=== PATIENT | female | born 1965 | race Caucasian/White ===

== ENCOUNTER 2017-06-14 14:22 | Inpatient (IN) ==
[2017-06-14] MEDS ORDERED: MAGNESIUM SULF RIDER 4 GM in PREMIX 1 EACH IV PRN (14:24)
[2017-06-14] MEDS ORDERED: MAGNESIUM SULF RIDER 2 GM in PREMIX 1 EACH IV PRN (14:24)
[2017-06-14] MEDS ORDERED: diphenhydrAMINE CAP 25 MG CAPSULE PO PRN (14:24)
[2017-06-14] MEDS ORDERED: ZALEPLON 5 MG CAPSULE PO PRN (14:24)
[2017-06-14] MEDS ORDERED: DOCUSATE SODIUM 100 MG CAPSULE PO PRN (14:24)
[2017-06-14] MEDS ORDERED: ONDANSETRON 4 MG/2 ML VIAL IV PRN (14:24)
[2017-06-14] MEDS ORDERED: guaiFENesin/DM ER 600-30 MG TABLET PO PRN (14:24)
[2017-06-14] MEDS ORDERED: LACTULOSE 20 GM/30 ML UDCUP PO PRN (14:24)
[2017-06-14 16:50] LABS: Troponin I Only 0.707 NG/ML (0.00-0.045)
[2017-06-14 17:23] LABS: Basophils # 0.1 10*3/uL (0.0-0.2); Basophils % 0.3 % (0.0-0.8); Eosinophils % 0.1 % (0.00-10.9); Hematocrit 39.3 VOL% (35.7-47.0); Hemoglobin 12.6 GM/DL (12.0-16.0); Immature Granulocytes % 0.4 %; Lymphocytes # 2.5 10*3/uL (1.4-4.0); Mean Corpuscular HGB Conc 32.1 GM/DL (32-36); Mean Corpuscular Hemoglobin 26 PG (27-34); Monocytes # 0.9 10*3/uL (0.11-0.8); Monocytes % 3.7 % (1.7-12.7); Neutrophils % 85.5 % (38.7-73.9); Platelet Count 415 T/CUMM (130-400); Red Blood Count 4.91 MC/CUMM (3.8-5.5); Red Cell Distribution Width 15.1 % (9.3-17.3); White Blood Count 24.5 T/CUMM (4-12)
[2017-06-14 17:42] LABS: INR 0.9; PT Patient Result 9.8 SECS; Partial Thromboplastin Time 27.5 SECS (0-40)
[2017-06-14 17:58] LABS: Albumin 3.4 G/DL (3.4-5.0); Bilirubin,Total 0.6 MG/DL (0.2-1.0); Calcium 8.9 MG/DL (8.5-10.1); Osmolality,Calculated 278.7 MOS/KG (273-304); Potassium 3.7 MMOL/L (3.5-5.1); Total Protein 7.4 G/DL (6.4-8.3)
[2017-06-14] MEDS ORDERED: hydrOXYzine HCL 25 MG TABLET PO PRN (18:03)
[2017-06-14] MEDS ORDERED: GLUCAGON 1 MG VIAL IM PRN (18:06)
[2017-06-14] MEDS ORDERED: DEXTROSE 50% 25 GM/50 ML VIAL IV PRN (18:06)
[2017-06-14 18:08] LABS: Band Neutrophils 1 % (0-10); Lymphocytes 12 % (20-55); Myelocytes 1 %; Segmented Neutrophils 79 % (50-85); Total Cells Counted 100
[2017-06-14 18:09] LABS: Platelet Estimate Increased
[2017-06-14 18:10] LABS: Troponin I Only 0.662 NG/ML (0.00-0.045)
[2017-06-14] MEDS ORDERED: ALBUTEROL 2.5 MG/3 ML NEB RESP TX PRN (18:10)
[2017-06-14] MEDS ORDERED: METOPROLOL TARTRATE 5 MG/5 ML VIAL IV PRN (18:15)
[2017-06-14 18:17] LABS: Apearance,Urine CLEAR (Clear); Bilirubin,Urine Negative (Negative); Blood, Urine Negative (Negative); Glucose,Urine (UA) Negative (Negative); Ketones,Urine Negative (Negative); Nitrite,Urine Negative (Negative); Protein,Urine Negative; RBC,Urine 1 /HPF (0-4); Squamous Epithelial Cell,Urine Occasional /HPF (0-10); Urine Color Straw (Yellow); Urine Specific Gravity 1.033 (1.001-1.035); Urine Urobilinogen < 2.0 EU/DL (0.2-1.0); WBC,Urine <1 /HPF (0-6)
[2017-06-14 18:24] LABS: Risk Ratio 5.09; VLDL CHOLESTEROL 44.8 MG/DL
[2017-06-14 18:41] LABS: Folate > 24.0 NG/ML (5.4-24.0); Vitamin B12 459 PG/ML (211-911)
[2017-06-14] MEDS: INSULIN LISPRO 100 UNIT/ML SUBCUT SCH (18:50)
[2017-06-14] MEDS: ALBUTEROL/IPRATROPIUM 3 ML NEB RESP TX SCH ×2 (19:25→23:58)
[2017-06-14] MEDS: cefTRIAXone 1,000 MG in SYRINGE 1 EACH IV SCH (20:27)
[2017-06-14] MEDS: FUROSEMIDE 40 MG/4 ML VIAL IV SCH (20:27)
[2017-06-14 20:58] LABS: Troponin I Only 0.666 NG/ML (0.00-0.045)
[2017-06-14] MEDS: SODIUM CHLORIDE 0.9% 1,000 ML IV SCH (21:50)
[2017-06-14] MEDS: CETIRIZINE 10 MG TABLET PO SCH (22:37)
[2017-06-14] MEDS: ROSUVASTATIN 20 MG TABLET PO SCH (22:37)
[2017-06-14] MEDS: METOPROLOL TARTRATE 25 MG TABLET PO SCH (22:37)
[2017-06-15 02:07] LABS: Basophils # 0.1 10*3/uL (0.0-0.2); Basophils % 0.3 % (0.0-0.8); Eosinophils % 0.1 % (0.00-10.9); Hematocrit 37.7 VOL% (35.7-47.0); Immature Granulocytes % 0.4 %; Immature Granulocytes Absolute 0.08 #; Lymphocytes # 2.9 10*3/uL (1.4-4.0); Lymphocytes % 15.9 % (21.3-54.2); Mean Corpuscular HGB Conc 31.8 GM/DL (32-36); Mean Corpuscular Hemoglobin 26 PG (27-34); Monocytes % 5.5 % (1.7-12.7); Neutrophils # 13.9 10*3/uL (1.4-7.4); Neutrophils % 77.8 % (38.7-73.9); Platelet Count 369 T/CUMM (130-400); Red Blood Count 4.71 MC/CUMM (3.8-5.5); Red Cell Distribution Width 14.9 % (9.3-17.3); White Blood Count 17.9 T/CUMM (4-12)
[2017-06-15 02:22] LABS: Calcium 8.8 MG/DL (8.5-10.1); Osmolality,Calculated 279.5 MOS/KG (273-304); Potassium 3.5 MMOL/L (3.5-5.1)
[2017-06-15] MEDS: POTASSIUM CHLORIDE RIDER 10 MEQ in PREMIX 1 EACH IV PRN ×2 (03:53→05:47)
[2017-06-15] MEDS: LEVOTHYROXINE 88 MCG TABLET PO SCH (06:14)
[2017-06-15] MEDS: ALBUTEROL/IPRATROPIUM 3 ML NEB RESP TX SCH ×3 (07:18→20:48)
[2017-06-15] MEDS ORDERED: ENOXAPARIN 40 MG/0.4 ML SYRINGE SUBCUT SCH (09:00)
[2017-06-15] MEDS: INSULIN LISPRO 100 UNIT/ML SUBCUT SCH ×2 (10:01→20:00)
[2017-06-15] MEDS: METOPROLOL TARTRATE 25 MG TABLET PO SCH ×2 (10:02→21:21)
[2017-06-15] MEDS: CETIRIZINE 10 MG TABLET PO SCH ×2 (10:02→21:22)
[2017-06-15] MEDS: PANTOPRAZOLE 40 MG TABLET PO SCH (10:02)
[2017-06-15] MEDS: ASPIRIN EC 81 MG TABLET PO SCH ×2 (10:02→16:26)
[2017-06-15] MEDS: LORazepam 2 MG/1 ML VIAL IV PRN (10:25)
[2017-06-15] MEDS ORDERED: FUROSEMIDE 40 MG/4 ML VIAL ONE (16:11)
[2017-06-15] MEDS: DILTIAZEM 30 MG TABLET PO SCH ×2 (16:25→21:21)
[2017-06-15] MEDS: FUROSEMIDE 40 MG/4 ML VIAL IV SCH ×2 (16:25→22:28)
[2017-06-15] MEDS: cefTRIAXone 1,000 MG in SYRINGE 1 EACH IV SCH ×2 (16:27→21:54)
[2017-06-15] MEDS ORDERED: ENOXAPARIN 120 MG/0.8 ML SYRINGE SUBCUT ONE (16:32)
[2017-06-15] MEDS: ENOXAPARIN 120 MG/0.8 ML SYRINGE SUBCUT SCH ×2 (16:33→21:22)
[2017-06-15] MEDS: ACETAMINOPHEN 325 MG TABLET PO PRN (21:20)
[2017-06-15] MEDS: ROSUVASTATIN 20 MG TABLET PO SCH (21:20)
[2017-06-16] MEDS: SODIUM CHLORIDE 0.9% 1,000 ML IV SCH ×2 (00:55→18:32)
[2017-06-16] MEDS: ALBUTEROL/IPRATROPIUM 3 ML NEB RESP TX SCH ×4 (02:34→21:23)
[2017-06-16 05:14] LABS: Basophils # 0.1 10*3/uL (0.0-0.2); Basophils % 0.6 % (0.0-0.8); Eosinophils # 0.1 10*3/uL (0.0-0.87); Hematocrit 37.5 VOL% (35.7-47.0); Hemoglobin 11.6 GM/DL (12.0-16.0); Immature Granulocytes % 0.3 %; Immature Granulocytes Absolute 0.03 #; Lymphocytes # 3.5 10*3/uL (1.4-4.0); Lymphocytes % 33.7 % (21.3-54.2); Mean Corpuscular HGB Conc 30.9 GM/DL (32-36); Mean Corpuscular Hemoglobin 26 PG (27-34); Mean Corpuscular Volume 82.4 FL (87-102); Mean Platelet Volume 10.1 FL (9.6-12.0); Monocytes # 0.8 10*3/uL (0.11-0.8); Monocytes % 7.2 % (1.7-12.7); Neutrophils # 5.9 10*3/uL (1.4-7.4); Neutrophils % 57.2 % (38.7-73.9); Platelet Count 326 T/CUMM (130-400); Red Blood Count 4.55 MC/CUMM (3.8-5.5); Red Cell Distribution Width 15.1 % (9.3-17.3); White Blood Count 10.4 T/CUMM (4-12)
[2017-06-16 05:44] LABS: Calcium 8.6 MG/DL (8.5-10.1); Osmolality,Calculated 284.1 MOS/KG (273-304); Potassium 3.9 MMOL/L (3.5-5.1)
[2017-06-16] MEDS: LEVOTHYROXINE 88 MCG TABLET PO SCH (06:30)
[2017-06-16] MEDS: INSULIN LISPRO 100 UNIT/ML SUBCUT SCH ×2 (08:05→17:03)
[2017-06-16] MEDS: LOSARTAN 50 MG TABLET PO SCH (09:09)
[2017-06-16] MEDS: METOPROLOL TARTRATE 25 MG TABLET PO SCH (09:09)
[2017-06-16] MEDS: ASPIRIN EC 81 MG TABLET PO SCH (09:09)
[2017-06-16] MEDS: PANTOPRAZOLE 40 MG TABLET PO SCH (09:10)
[2017-06-16] MEDS: DILTIAZEM 30 MG TABLET PO SCH ×2 (09:10→14:37)
[2017-06-16] MEDS: FUROSEMIDE 40 MG/4 ML VIAL IV SCH (09:10)
[2017-06-16] MEDS: CETIRIZINE 10 MG TABLET PO SCH ×2 (09:10→20:57)
[2017-06-16] MEDS: SPIRONOLACTONE 25 MG TABLET PO SCH (16:51)
[2017-06-16] MEDS: cefTRIAXone 1,000 MG in SYRINGE 1 EACH IV SCH (18:31)
[2017-06-16] MEDS: ROSUVASTATIN 20 MG TABLET PO SCH (20:57)
[2017-06-16] MEDS: CARVEDILOL 6.25 MG TABLET PO SCH (20:57)
[2017-06-16] MEDS: ENOXAPARIN 120 MG/0.8 ML SYRINGE SUBCUT SCH (20:58)
[2017-06-17] MEDS: ALBUTEROL/IPRATROPIUM 3 ML NEB RESP TX SCH ×4 (02:14→19:40)
[2017-06-17 05:31] LABS: Basophils # 0.1 10*3/uL (0.0-0.2); Basophils % 0.5 % (0.0-0.8); Eosinophils # 0.2 10*3/uL (0.0-0.87); Eosinophils % 1.9 % (0.00-10.9); Hematocrit 33.7 VOL% (35.7-47.0); Hemoglobin 10.3 GM/DL (12.0-16.0); Immature Granulocytes % 0.3 %; Immature Granulocytes Absolute 0.03 #; Lymphocytes # 2.5 10*3/uL (1.4-4.0); Lymphocytes % 27.8 % (21.3-54.2); Mean Corpuscular HGB Conc 30.6 GM/DL (32-36); Mean Corpuscular Hemoglobin 26 PG (27-34); Mean Corpuscular Volume 83.4 FL (87-102); Mean Platelet Volume 9.8 FL (9.6-12.0); Monocytes # 0.7 10*3/uL (0.11-0.8); Monocytes % 7.1 % (1.7-12.7); Neutrophils # 5.7 10*3/uL (1.4-7.4); Neutrophils % 62.4 % (38.7-73.9); Platelet Count 287 T/CUMM (130-400); Red Blood Count 4.04 MC/CUMM (3.8-5.5); Red Cell Distribution Width 14.7 % (9.3-17.3); White Blood Count 9.1 T/CUMM (4-12)
[2017-06-17 06:01] LABS: Calcium 8.3 MG/DL (8.5-10.1); Osmolality,Calculated 282.3 MOS/KG (273-304); Potassium 3.3 MMOL/L (3.5-5.1)
[2017-06-17] MEDS: LEVOTHYROXINE 88 MCG TABLET PO SCH (07:13)
[2017-06-17] MEDS: INSULIN LISPRO 100 UNIT/ML SUBCUT SCH ×2 (08:31→17:10)
[2017-06-17] MEDS: ASPIRIN EC 81 MG TABLET PO SCH (09:54)
[2017-06-17] MEDS: LOSARTAN 50 MG TABLET PO SCH ×2 (09:55→20:25)
[2017-06-17] MEDS: CARVEDILOL 6.25 MG TABLET PO SCH ×2 (09:56→20:23)
[2017-06-17] MEDS: FUROSEMIDE 40 MG/4 ML VIAL IV SCH (09:56)
[2017-06-17] MEDS: POTASSIUM CHLORIDE 20 MEQ TABLET PO PRN ×2 (09:56→14:01)
[2017-06-17] MEDS: SPIRONOLACTONE 25 MG TABLET PO SCH (09:56)
[2017-06-17] MEDS: PANTOPRAZOLE 40 MG TABLET PO SCH (09:56)
[2017-06-17] MEDS: CETIRIZINE 10 MG TABLET PO SCH ×2 (09:56→20:25)
[2017-06-17] MEDS: LORazepam 2 MG/1 ML VIAL IV PRN (10:22)
[2017-06-17] MEDS: ALPRAZolam 0.5 MG TABLET PO SCH ×3 (14:01→20:25)
[2017-06-17] MEDS: RIVAROXABAN 20 MG TABLET PO SCH (14:01)
[2017-06-17] MEDS: cefTRIAXone 1,000 MG in SYRINGE 1 EACH IV SCH (17:57)
[2017-06-17] MEDS: ACETAMINOPHEN 325 MG TABLET PO PRN (20:24)
[2017-06-17] MEDS: ROSUVASTATIN 20 MG TABLET PO SCH (20:24)
[2017-06-18] MEDS: ALBUTEROL/IPRATROPIUM 3 ML NEB RESP TX SCH ×4 (00:30→19:31)
[2017-06-18] MEDS: SODIUM CHLORIDE 0.9% 1,000 ML IV SCH (02:19)
[2017-06-18 05:47] LABS: Basophils % 0.5 % (0.0-0.8); Eosinophils # 0.2 10*3/uL (0.0-0.87); Eosinophils % 2.3 % (0.00-10.9); Hematocrit 35.8 VOL% (35.7-47.0); Hemoglobin 10.9 GM/DL (12.0-16.0); Immature Granulocytes % 0.5 %; Immature Granulocytes Absolute 0.04 #; Lymphocytes # 2.6 10*3/uL (1.4-4.0); Lymphocytes % 32.9 % (21.3-54.2); Mean Corpuscular HGB Conc 30.4 GM/DL (32-36); Mean Corpuscular Hemoglobin 26 PG (27-34); Mean Platelet Volume 9.7 FL (9.6-12.0); Monocytes # 0.7 10*3/uL (0.11-0.8); Monocytes % 8.6 % (1.7-12.7); Neutrophils # 4.4 10*3/uL (1.4-7.4); Neutrophils % 55.2 % (38.7-73.9); Platelet Count 286 T/CUMM (130-400); Red Blood Count 4.26 MC/CUMM (3.8-5.5); Red Cell Distribution Width 14.9 % (9.3-17.3); White Blood Count 7.9 T/CUMM (4-12)
[2017-06-18 06:26] LABS: Blood Urea Nitrogen 13 MG/DL (7-18); Calcium 8.5 MG/DL (8.5-10.1); Glucose 116 MG/DL (74-106); Osmolality,Calculated 283.1 MOS/KG (273-304); Potassium 3.6 MMOL/L (3.5-5.1); Sodium 142 MMOL/L (136-145); Troponin I Only 0.097 NG/ML (0.00-0.045)
[2017-06-18] MEDS: LEVOTHYROXINE 88 MCG TABLET PO SCH (06:50)
[2017-06-18] MEDS: INSULIN LISPRO 100 UNIT/ML SUBCUT SCH ×2 (07:58→16:30)
[2017-06-18] MEDS: ASPIRIN EC 81 MG TABLET PO SCH (09:07)
[2017-06-18] MEDS: LOSARTAN 50 MG TABLET PO SCH ×2 (09:07→20:29)
[2017-06-18] MEDS: PANTOPRAZOLE 40 MG TABLET PO SCH (09:07)
[2017-06-18] MEDS: CETIRIZINE 10 MG TABLET PO SCH ×2 (09:07→20:30)
[2017-06-18] MEDS: ALPRAZolam 0.5 MG TABLET PO SCH ×3 (09:07→20:29)
[2017-06-18] MEDS: CARVEDILOL 6.25 MG TABLET PO SCH ×2 (09:07→20:30)
[2017-06-18] MEDS: RIVAROXABAN 20 MG TABLET PO SCH (09:07)
[2017-06-18] MEDS: SPIRONOLACTONE 25 MG TABLET PO SCH (09:07)
[2017-06-18] MEDS: FUROSEMIDE 40 MG/4 ML VIAL IV SCH (09:08)
[2017-06-18] MEDS: cefTRIAXone 1,000 MG in SYRINGE 1 EACH IV SCH (18:33)
[2017-06-18] MEDS: ROSUVASTATIN 20 MG TABLET PO SCH (20:29)
[2017-06-18] MEDS: ACETAMINOPHEN 325 MG TABLET PO PRN (20:31)
[2017-06-19] MEDS: ALBUTEROL/IPRATROPIUM 3 ML NEB RESP TX SCH ×2 (00:23→07:25)
[2017-06-19 05:26] LABS: Basophils % 0.5 % (0.0-0.8); Eosinophils # 0.2 10*3/uL (0.0-0.87); Eosinophils % 2.2 % (0.00-10.9); Hematocrit 35.6 VOL% (35.7-47.0); Hemoglobin 11.4 GM/DL (12.0-16.0); Immature Granulocytes % 0.2 %; Immature Granulocytes Absolute 0.02 #; Lymphocytes # 2.9 10*3/uL (1.4-4.0); Lymphocytes % 35.1 % (21.3-54.2); Mean Corpuscular Hemoglobin 26 PG (27-34); Mean Corpuscular Volume 81.3 FL (87-102); Mean Platelet Volume 9.9 FL (9.6-12.0); Monocytes # 0.7 10*3/uL (0.11-0.8); Monocytes % 8.2 % (1.7-12.7); Neutrophils # 4.5 10*3/uL (1.4-7.4); Neutrophils % 53.8 % (38.7-73.9); Platelet Count 282 T/CUMM (130-400); Red Blood Count 4.38 MC/CUMM (3.8-5.5); Red Cell Distribution Width 14.9 % (9.3-17.3); White Blood Count 8.3 T/CUMM (4-12)
[2017-06-19 05:59] LABS: Calcium 8.6 MG/DL (8.5-10.1); Osmolality,Calculated 280.4 MOS/KG (273-304); Potassium 3.6 MMOL/L (3.5-5.1)
[2017-06-19] MEDS: LEVOTHYROXINE 88 MCG TABLET PO SCH (06:00)
[2017-06-19] MEDS ORDERED: FUROSEMIDE 40 MG TABLET PO SCH (09:00)
[2017-06-19] MEDS: SPIRONOLACTONE 25 MG TABLET PO SCH (09:41)
[2017-06-19] MEDS: CARVEDILOL 6.25 MG TABLET PO SCH (09:41)
[2017-06-19] MEDS: LOSARTAN 50 MG TABLET PO SCH (09:41)
[2017-06-19] MEDS: ASPIRIN EC 81 MG TABLET PO SCH (09:41)
[2017-06-19] MEDS: ALPRAZolam 0.5 MG TABLET PO SCH ×2 (09:42→16:16)
[2017-06-19] MEDS: PANTOPRAZOLE 40 MG TABLET PO SCH (09:42)
[2017-06-19] MEDS: RIVAROXABAN 20 MG TABLET PO SCH (09:42)
[2017-06-19] MEDS: CETIRIZINE 10 MG TABLET PO SCH (09:42)
[2017-06-19] MEDS: ACETAMINOPHEN 325 MG TABLET PO PRN ×3 (09:47→16:15)
[2017-06-19] MEDS: INSULIN LISPRO 100 UNIT/ML SUBCUT SCH ×2 (11:12→17:24)
[2017-06-19 16:47] VITALS: BP 115/78
== END 2017-06-19 18:01 | disposition home or self-care (01) | DRG 64 ==
LOC: SUATTDRO 14:24 → N.TELEN 15:48 → SUATTDRO 15:48
PROVIDERS: ADMIT Internal Medicine Clinical Cardiac Electrophysiology; ATTEND Internal Medicine